=== PATIENT | female | born 1995 | race Caucasian/White ===

== ENCOUNTER 2020-12-13 09:04 | Emergency (ER) | payer BC, MEDICAID ==
--- NOTE | 2020-12-13 09:16 | EDM.PDOC ---
ED HPI GENERAL MEDICAL PROBLEM - General Chief Complaint: Bite:Animal, Insect Stated Complaint: cat bite to right hand, warm, red and swollen Time Seen by Provider: 12/13/20 09:10 Source of Information: Reports: Patient, Old Records ([facility] EMR. No paper hospital chart available.) History Limitations: Reports: No Limitations - History of Present Illness INITIAL COMMENTS - FREE TEXT/NARRATIVE: The patient was brought to the emergency room via private automobile by her boyfriend for evaluation of a cat bite injury which occurred at home at about 9 AM 2 days ago. The patient adopted the 9-month-old cat about 1 week ago with no history of unusual or aggressive behavior, etc. She has had increasing right hand pain and swelling since that time with no history of drainage and the patient only cleaning the area with hydrogen peroxide. She has not injured this hand in the past. The patient also denies any recent fever, cough, wheezing, dyspnea, etc.. No recent history of abdominal pain, heartburn, nausea, diarrhea, melena, gross hematochezia, or any food intolerance, including fatty foods, etc.. Onset: Sudden Onset Date: 12/11/20 Onset Time: 09:00 Duration: Constant, Getting Worse Location: Reports: Upper Extremity, Right. Denies: Head, Face, Neck, Chest, Abdomen, Back, Radiates to Quality: Reports: Throbbing Severity: Severe Improves with: Reports: None Worsens with: Reports: None Context: Reports: Trauma (As above). Denies: Sick Contact Associated Symptoms: Reports: Rash (Right hand cellulitis and swelling as above). Denies: Confusion, Chest Pain, Cough, Diaphoresis, Fever/Chills, Headaches, Loss of Appetite, Malaise, Nausea/Vomiting, Shortness of Breath, Syncope, Weakness Treatments BENEFIT AUTHORIZER: Reports: Other (see below) (As above) Right Hand Pain Score (Numeric/FACES): 10 - Related Data Allergies Allergy/AdvReac Type Severity Reaction Status Date / Time amoxicillin Allergy Itching Verified 12/13/20 09:06 pineapple Allergy Anaphylactic Verified 12/13/20 09:06 Shock Home Meds: Home Meds Albuterol/Ipratropium [Combivent Respimat] 4 gm IH DAILY 12/13/20 [History] DULoxetine [Cymbalta] 60 mg PO DAILY 12/13/20 [History] EPINEPHrine [Epipen] 0.3 mg IM ASDIRECTED PRN 12/13/20 [History] LORazepam [Ativan] 0.5 mg PO BID PRN 12/13/20 [History] Prazosin HCl [Prazosin] 1 cap PO BEDTIME 12/13/20 [History] clindamycin HCL [Clindamycin HCl] 150 mg PO TID #30 capsule 12/13/20 [Rx] Past Medical History HEENT History: Reports: Impaired Vision, Other (See Below) Other HEENT History: The patient wears glasses. Respiratory History: Reports: Asthma Psychiatric History: Reports: Anxiety, Depression, PTSD Social & Family History - Tobacco Use Tobacco Use Status *Q: Current Every Day Tobacco User Tobacco Use Within Last Twelve Months: Cigarettes Years of Tobacco use: 6 Packs/Tins Daily: 1 Packs/Tins Daily Comment: The patient started smoking at age 19. Used Tobacco, but Quit: No Smoking Cessation Information Provided To Patient: Yes Second Hand Smoke Exposure: No Second Hand Smoke Education Provided: No - Living Situation & Occupation Living situation: Reports: Other (Roommate) Occupation: Unemployed ED ROS GENERAL - Review of Systems Review Of Systems: Comprehensive ROS is negative, except as noted in HPI. ED EXAM, ANIMAL BITE - Physical Exam Exam: See Below Exam Limited By: No Limitations General Appearance: Alert, WD/WN, No Apparent Distress, Anxious (Mild) Head: Atraumatic, Normocephalic Neck: Normal Inspection, Supple, Non-Tender, Full Range of Motion. No: Lymphadenopathy (L), Lymphadenopathy (R), Thyromegaly Respiratory/Chest: No Respiratory Distress, Lungs Clear, Normal Breath Sounds, No Accessory Muscle Use, Chest Non-Tender. No: Pleural Rub, Retractions Cardiovascular: Normal Peripheral Pulses, Regular Rate, Rhythm, No Edema, No Gallop, No JVD, No Murmur, No Rub. No: Gallop/S3, Gallop/S4, Friction Rub Peripheral Pulses: 2+: Radial (L), Radial (R) GI/Abdominal: Normal Bowel Sounds, Soft, Non-Tender, No Organomegaly, No Distention, No Abnormal Bruit, No Mass. No: Guarding (Female) Exam: Deferred Rectal (Female) Exam: Deferred Back Exam: Normal Inspection, Full Range of Motion. No: CVA Tenderness (L), CVA Tenderness (R) Extremities: Joint Swelling (Moderate right dorsal hand swelling with +1 erythema and moderate localized palpation pain but no lymphangitis, drainage, etc.. Cat bite noted over the radial surface of the right hand at the mid second and third metacarpal.), Limited Range of Motion (Mild right hand), Other (No evidence of compartment syndrome, forearm swelling, etc.) Neurological: Alert, Oriented, CN II-XII Intact, Normal Cognition, Normal Gait, Normal Reflexes, No Motor/Sensory Deficits Psychiatric: Anxious (Mild), Depressed Mood (Borderline) Skin Exam: Tattoo(s), Other (Right hand as above). No: Ecchymosis Lymphadenopathy: Bilateral: No Adenopathy Lymphatic: No Adenopathy Course - Vital Signs Last Recorded V/S: Last Vital Signs Temp 36.3 C 12/13/20 09:10 Pulse 90 12/13/20 09:10 Resp 18 12/13/20 09:10 BP 118/77 12/13/20 09:10 Pulse Ox 100 12/13/20 09:10 Vital Signs - 24 hr 12/13/20 09:10 Temperature [ 36.3 C Temporal] Pulse, 90 Peripheral [ Left Pulse Oximetry] Respiratory 18 Rate Blood Pressure 118/77 [Left Upper Arm ] O2 Sat by Pulse 100 Oximetry - Orders/Labs/Meds Orders: Active Orders 24 hr Category Date Time Status Obtain Past Medical Record [OM.PC] Routine Oth 12/13/20 09:16 Active Peripheral IV Insertion Adult [OM.PC] Routine Oth 12/13/20 09:18 Ordered Labs: Laboratory Tests 12/13/20 12/13/20 12/13/20 Range/Units 09:30 09:30 09:30 WBC 8.1 (4.0-10.2) K/uL RBC 4.81 (3.77-5.09) M/uL Hgb 13.8 (11.7-15.5) g/dL Hct 41.6 (34.0-46.0) % MCV 86.5 (84.0-98.0) fL MCH 28.7 (28.2-33.3) pg MCHC 33.2 (31.7-36.0) g/dL RDW 13.9 (11.2-14.1) % Plt Count 179 (150-350) K/uL Neut % (Auto) 67.3 (45.0-80.0) % Lymph % (Auto) 24.0 (10.0-50.0) % [place] % (Auto) 4.6 (2.0-14.0) % Eos % (Auto) 3.9 (0.0-5.0) % Baso % (Auto) 0.2 (0.0-2.0) % Neut # (Auto) 5.42 (1.40-7.00) K/uL Lymph # (Auto) 1.93 (0.50-3.50) K/uL [place] # (Auto) 0.37 (0.00-1.00) K/uL Eos # (Auto) 0.31 (0.00-0.50) K/uL Baso # (Auto) 0.02 (0.00-0.20) K/uL Sodium 140 (136-145) mmol/L Potassium 3.8 (3.5-5.1) mmol/L Chloride 107 (98-107) mmol/L Carbon Dioxide 24.3 (21.0-32.0) mmol/L BUN 10 (7-18) mg/dL Creatinine 0.66 (0.51-1.17) mg/dL Est Cr Clr Drug Dosing 123.04 mL/min Estimated GFR (MDRD) > 60 mL/min Glucose 85 (74-106) mg/dL Lactic Acid 1.1 (0.4-2.0) mmol/L Calcium 8.6 (8.5-10.1) mg/dL Total Bilirubin 0.4 (0.2-1.0) mg/dL AST 15 (15-37) U/L ALT 28 (12-78) U/L Alkaline Phosphatase 83 (46-116) IU/L Total Protein 7.5 (6.4-8.2) g/dL Albumin 3.7 (3.4-5.0) g/dL Meds: Medications Discontinued Medications Generic Name Dose Route Start Last Admin Trade Name Freq PRN Reason Stop Dose Admin Ceftriaxone Sodium 2 gm 12/13/20 09:18 12/13/20 09:49 Rocephin IVPUSH 12/13/20 09:19 2 gm ONETIME ONE Administration Sodium Chloride 10 ml 12/13/20 09:18 02/03/21 09:49 Saline Flush FLUSH 10 ml ASDIRECTED PRN Administration Keep Vein Open - Radiology Interpretation Free Text/Narrative:: None Departure - Departure Time of Disposition: 10:46 Disposition: Home, Self-Care 01 Condition: Good Clinical Impression: Mixed anxiety depressive disorder, Tobacco abuse counseling Cellulitis Qualifiers: Site of cellulitis: extremity Site of cellulitis of extremity: upper extremity Laterality: left Qualified Code(s): L03.114 - Cellulitis of left upper limb Asthma Qualifiers: Asthma severity: mild Asthma persistence: intermittent Asthma complication type: uncomplicated Qualified Code(s): J45.20 - Mild intermittent asthma, uncomplicated Cat bite Qualifiers: Encounter type: initial encounter Qualified Code(s): W55.01XA - Bitten by cat, initial encounter - Discharge Information *PRESCRIPTION DRUG MONITORING PROGRAM REVIEWED*: Not Applicable *COPY OF PRESCRIPTION DRUG MONITORING REPORT IN PATIENT ZIYAD: Not Applicable Prescriptions: clindamycin HCL [Clindamycin HCl] 150 mg PO TID #30 capsule Instructions: Steps to Quit Smoking, [id number], Animal Bite, Adult, [id number], Health Risks of Smoking, Cellulitis, Adult, [id number] Referrals: Jacques Harris PA [Primary Care Provider] - Forms: ED Department Discharge Additional Instructions: 1. Followup with your regular provider in 7-10 days as directed. Bring these discharge instructions with you to that visit. 2. Tylenol 650 mg by mouth every 4 hours and/or OTC ibuprofen 2-3 tabs by mouth every 6 hours with food as directed./needed. You may stagger these medications for 48-72 hours only, which essentially means that you are receiving a pain medication about every 2 hours. 3. Antibacterial soap wash/soak with subsequent antibacterial dressing such as Neosporin, etc. as directed 2 times per day until the wound site completely heals. Keep the area clean and dry with activity restrictions as discussed. Never use hydrogen peroxide for wound care. 4. Verify that your cats immunizations are up-to-date and/or have the cat sacrificed and sent for pathological review to rule out rabies as discussed 5. Stop all tobacco use NASIR as directed/per provided information and consider contacting Quit LIne, etc.. 6. Immediately after this visit verify that your cellular telephone's voicemail has been activated and is empty. Also verify that your home telephone's answering machine is operating properly and has space to receive messages. Note that it is sometimes necessary for us to be able to contact you at a later date to discuss your medical care. 7. Please remember that we are ALWAYS here for you and want to answer any questions you may have. Feel free to call the hospital any time and we call you back NASIR. Sepsis Event Note (ED) - Focused Exam Vital Signs: Vital Signs Temp Pulse Resp BP Pulse Ox 12/13/20 09:10 36.3 C 90 18 118/77 100 - Problem List & Annotations (1) Cat bite SNOMED Code(s): 369549694, 368678349 Code(s): W55.01XA - BITTEN BY CAT, INITIAL ENCOUNTER Status: Acute Priority: High Onset Date: 12/11/20 Annotation/Comment:: Cat bite injury as above with secondary significant cellulitis as below. Patient does agree to verify the cat's immunization status, including rabies, etc., as per discharge instructions. The cat's previous owner professional engineer apparently did have veterinary care prior to the patient adopting the cat 1 week ago by the patient's history. The emergency room nurse did verify patient's last TDAP on 07/06/2019. Note that at the end of the ER visit the patient did state that she did previously follow-up for the same injury at the [facility] in [place] and was also prescribed clindamycin at that time at an unknown dose, which the patient states she cannot afford. The patient was counseled and strongly encouraged to start her clindamycin NASIR at the highest prescribed dose either per my instructions versus previous prescription from the [facility] as above. She was cautioned about the risks of compartment syndrome, surgery, etc.. She agrees to initiate clindamycin and discuss financial issues with the pharmacist later today. Qualifiers: Encounter type: initial encounter Qualified Code(s): W55.01XA - Bitten by cat, initial encounter (2) Cellulitis SNOMED Code(s): 145787598 Code(s): L03.90 - CELLULITIS, UNSPECIFIED Status: Acute Priority: High Onset Date: ~12/13/20 Annotation/Comment:: Moderate cellulitis with no evidence of compartment syndrome secondary to cat bite injury as above. High- dose IV Rocephin given in the emergency room with initiation of oral clindamycin therapy on an outpatient basis. Diarrhea precautions were given. Wound care was discussed. Qualifiers: Site of cellulitis: extremity Site of cellulitis of extremity: upper extremity Laterality: left Qualified Code(s): L03.114 - Cellulitis of left upper limb (3) Asthma SNOMED Code(s): 533246432 Code(s): J45.909 - UNSPECIFIED ASTHMA, UNCOMPLICATED Status: Chronic Priority: Medium Annotation/Comment:: No recent fever or bronchitic type symptoms. Stable by history. Qualifiers: Asthma severity: mild Asthma persistence: intermittent Asthma co mplication type: uncomplicated Qualified Code(s): J45.20 - Mild intermittent asthma, uncomplicated (4) Mixed anxiety depressive disorder SNOMED Code(s): 903146933 Code(s): F41.8 - OTHER SPECIFIED ANXIETY DISORDERS Status: Chronic Priority: Medium Annotation/Comment:: Stable by patient history. Continue to observe closely by regular provider. (5) Tobacco abuse counseling SNOMED Code(s): 103556265, [id number], [id number] Code(s): Z71.6 - TOBACCO ABUSE COUNSELING Status: Chronic Priority: Medium Annotation/Comment:: Tobacco cessation strongly encouraged especially in light of her asthma. Tobacco cessation information was provided. - Problem List Review Problem List Initiated/Reviewed/Updated: Yes - My Orders Last 24 Hours: My Active Orders 12/13/20 09:16 Obtain Past Medical Record [OM.PC] Routine 12/13/20 09:18 Peripheral IV Insertion Adult [OM.PC] Routine - Assessment/Plan Last 24 Hours: My Active Orders 12/13/20 09:16 Obtain Past Medical Record [OM.PC] Routine 12/13/20 09:18 Peripheral IV Insertion Adult [OM.PC] Routine Assessment:: As above Plan: As above. Extensive precautions were given to the patient, who is in agreement with the treatment plan. See Patient Instructions for further treatment and plan.
[2020-12-13] MEDS ORDERED: cefTRIAXone 2 GM Vial IVPUSH ONE (09:18)
[2020-12-13] MEDS ORDERED: Sodium Chloride 0.9% 10 ML Syringe FLUSH PRN (09:18)
[2020-12-13 10:02] LABS: CHLORIDE,CL 107 mmol/L (98-107); SODIUM,NA 140 mmol/L (136-145)
== END 2020-12-13 10:46 | disposition home or self-care (01) ==
LOC: LL.ED 09:04
DX: S61.451A Open bite of right hand, initial encounter (principal); L03.113 Cellulitis of right upper limb; J45.20 Mild intermittent asthma, uncomplicated; F41.8 Other specified anxiety disorders; Z71.6 Tobacco abuse counseling; Z88.0 Allergy status to penicillin; Z91.018 Allergy to other foods; Z72.0 Tobacco use; Z79.899 Other long term (current) drug therapy; W55.01XA Bitten by cat, initial encounter; Y92.009 Unspecified place in unspecified non-institutional (private) residence as the place of occurrence of the external cause
CPT/HCPCS: 36415; 80053; 83605; 85025; 96374; 99283; J0696